=== PATIENT | female | born 1975 | race Caucasian/White ===

== ENCOUNTER 2016-07-01 08:45 | Emergency (ER) | payer MEDICAID ==
[~2016-07-01] VITALS: Ht 152.4 cm; Wt 74.5 kg
[~2016-07-01 08:45] MED LIST: PREN1TAB12
[2016-07-01 08:48] VITALS: Ht 152.4 cm; Wt 74.5 kg
[2016-07-01] MEDS ORDERED: DOCU-144 PO (10:09)
[2016-07-01] MEDS ORDERED: HYDR25SU23 PR (10:09)
--- NOTE | 2016-07-01 10:12 | ERD ---
ER Documentation Chief Complaint Date/Time DATE: 07/01/16 TIME: 10:10 Chief Complaint rectal growth x 2 days HPI 41-year-old female presents complaining of a growth factor that she has had for 2-3 days. She has pain with bowel movements. Denies any blood in her stool. Denies any nausea or vomiting or diarrhea. She has had hemorrhoids in the past. No fever. ROS All systems reviewed and are negative except as per history of present illness. Medications Home Meds Active Scripts Docusate Sodium* (Colace*) 100 Mg Capsule, 100 MG PO TID, #30 CAP Prov:KYUNG EARLY PA-C 07/01/16 Hydrocortisone Acetate (Anusol-Hc) 25 Mg Supp.rect, 1 SUPP LA BID Y for HEMORROID PAIN/ITCHING, #12 SUPP.RECT Prov:KYUNG EARLY PA-C 07/01/16 Reported Medications Vit/Fe Fumarate/Fa ( 1-1 Tablet) 1 Tab Tablet 01/28/09 Allergies Allergies: Coded Allergies: No Known Drug Allergies (Verified Allergy, Mild, 07/01/16) PMhx/Soc History of Surgery: Yes (C SECTION ) Hx Neurological Disorder: No Hx Respiratory Disorders: No Hx Cardiac Disorders: No Hx Miscellaneous Medical Probl: Yes (HEMORRHOIDS ) Hx Alcohol Use: No Hx Substance Use: No Hx Tobacco Use: No Smoking Status: Never smoker FmHx Family History: No diabetes Physical Exam Vitals Vital Signs Date Time Temp Pulse Resp B/P Pulse Ox O2 Delivery O2 Flow Rate FiO2 07/01/16 08:48 98.6 77 18 112/60 98 Physical Exam General: well developed, well nourished, alert, nontoxic, no distress Head: normocephalic, atraumatic Neck: Supple, nontender, no lymphadenopathy, no midline tenderness Respiratory: Clear to auscaultation bilaterally, speaks in full sentences, no use of accesory muscles or labored breathing, no rales, ronchi, or wheezing Cardiovascular: RRR, No murmurs GI: soft, non tender, non distended, negative murphys sign, negative mcburneys point tenderness, no cva tenderness bilaterally, no rebound or guarding Rectal: Performed with female parts fabricator site technician harmeet thompson Multiple external hemorrhoids nonthrombosed, no bleeding Procedures/MDM This is a 41-year-old who has nonthrombosed hemorrhoids. Her vitals are normal and her exam is otherwise normal. She is given a prescription for stool softeners as well as Anusol and instructed to follow primary care for possible outpatient referral to general surgery to have them removed if these do not resolve on their own. Recommended this patient follow up with her primary care doctor within 48 hours or return to the emergency room for any worsening of symptoms. However this time I do believe there is suitable for outpatient management. I answered all their questions and they agreed with the plan and were discharged home. Departure Diagnosis: Primary Impression: External hemorrhoid Condition: Stable Patient Instructions: Treating Hemorrhoids: Self-Care, Treating Hemorrhoids: Surgery, Hemorrhoids Additional Instructions: Call your primary care doctor TOMORROW for an appointment during the next 1-2 days.See the doctor sooner or return here if your condition worsens before your appointment time. KYUNG EARLY PA-C July 01, 2016 10:12
== END 2016-07-01 10:10 | disposition home or self-care (01) ==
LOC: FTE 08:45
DX: K64.4 Residual hemorrhoidal skin tags (principal)
CPT/HCPCS: 99284

== ENCOUNTER 2017-08-18 19:35 | Emergency (ER) | END 2017-08-18 22:30 | disposition home or self-care (01) ==

== ENCOUNTER 2018-01-22 13:57 | Emergency (ER) | END 2018-01-22 18:05 | disposition home or self-care (01) ==

== ENCOUNTER 2018-09-09 23:42 | Emergency (ER) | payer MEDICAID ==
[~2018-09-09] VITALS: Ht 152.4 cm; Wt 78.2 kg
[~2018-09-09 23:42] MED LIST changes: +ALBU8.5H8 INH; +AZIT250T PO; +BENZ-6 PO; +DOCU-144 PO; +HYDR25SU23 PR; +IBUP-1542 PO; +NITR-58 PO; +PRED20TA PO
[2018-09-09 23:49] VITALS: Ht 152.4 cm; Wt 78.2 kg
[2018-09-09] MEDS ORDERED: ALBUTEROL 0.083% (NEB) 2.5 MG/3 ML AMP HHN STA (23:58)
--- NOTE | 2018-09-09 23:58 | ERD ---
ER Documentation Chief Complaint Chief Complaint SOB X2 DAYS, HX ASTHMA HPI This is a 43-year-old female presents emergency department with complaints of shortness of breath and wheezing for about 2 days and got worse today. Stated that she has history of asthma. LMP: Stated that she is on her period. Denies headache, head injury, loss of consciousness, dizziness, neck pain, neck stiffness, throat pain, difficulty swallowing, difficulty breathing lying flat, shoulder pain, chest pain, back pain, abdominal pain, nausea, vomiting, constipation, diarrhea, urinary symptoms, or possibility being , loss of bowel and bladder control, trauma, injury, falls, difficulty walking due to pain, numbness or tingling sensation, calf pain, recent travel, recent major surgery in the last 3 weeks, calf pain, recent long travel, recent exposure to any illness, recent antibiotic use in the last 3 months, fever, chills, seizures. Past medical history: Denies. Surgical history: Denies. Social: Denies smoking, use of alcoholic beverages, use of illegal drugs. ROS All systems reviewed and are negative except as per history of present illness. Medications Home Meds Active Scripts Azithromycin* (Zithromax*) 250 Mg Tablet, 250 MG PO .ZPACK DIRECTED, #6 TAB TAKE 500 MG (2 TABS) THE FIRST DAY THEN 250 MG (1 TAB) DAYS 2-5 Prov:ALLISON ORDONEZ 09/10/18 Benzonatate* (Tessalon Perle*) 100 Mg Capsule, 100 MG PO Q8H PRN for COUGH, #15 CAP Prov:ALLISON ORDONEZ 09/10/18 Prednisone* (Prednisone*) 20 Mg Tab, 40 MG PO DAILY for 4 Days, TAB Prov:ALLISON ORDONEZ 09/10/18 Albuterol Sulfate* (Proair HFA*) 8.5 Gm Hfa.aer.ad, 2 PUFF INH Q4 PRN for WHEEZING, #1 INHALER Prov:ALLISON ORDONEZ 09/10/18 Nitrofurantoin Monohyd Macrocr* (Macrobid*) 100 Mg Capsr, 100 MG PO BID for 14 Days, CAP Prov:PEPPER PAPPAS PA-C 01/22/18 Albuterol Sulfate* (Proair HFA*) 8.5 Gm Hfa.aer.ad, 2 PUFF INH Q4, #1 INHALER Prov:MIANPEPPERVeda Shane PA-C 01/22/18 Ibuprofen* (Motrin*) 600 Mg Tab, 600 MG PO Q6, #30 TAB Prov:TIM WIN 08/18/17 Azithromycin* (Zithromax*) 250 Mg Tablet, 250 MG PO .ZPACK DIRECTED, #6 TAB TAKE 500 MG (2 TABS) THE FIRST DAY THEN 250 MG (1 TAB) DAYS 2-5 Prov:TIM WIN 08/18/17 Docusate Sodium* (Colace*) 100 Mg Capsule, 100 MG PO TID, #30 CAP Prov:KYUNG EARLY PA-C 07/01/16 Hydrocortisone Acetate (Anusol-Hc) 25 Mg Supp.rect, 1 SUPP MS BID PRN for HEMORROID PAIN/ITCHING, #12 SUPP.RECT Prov:KYUNG EARLY PA-C 07/01/16 Reported Medications Vit/Fe Fumarate/Fa ( 1-1 Tablet) 1 Tab Tablet 01/28/09 Allergies Allergies: Coded Allergies: No Known Drug Allergies (Verified Allergy, Mild, 07/01/16) PMhx/Soc History of Surgery: Yes ( x 4) Hx Neurological Disorder: No Hx Respiratory Disorders: Yes (asthma) Hx Cardiac Disorders: No Hx Miscellaneous Medical Probl: Yes (HEMORRHOIDS ) Hx Alcohol Use: No Hx Substance Use: No Hx Tobacco Use: No Physical Exam Vitals Vital Signs Date Temp Pulse Resp B/P (MAP) Pulse Ox O2 O2 Flow FiO2 Time Delivery Rate 09/10/18 98.2 86 17 122/80 99 Room Air 01:34 (94) 09/10/18 98 20 98 21 00:26 09/09/18 98.6 82 20 125/60 98 23:49 (81) Physical Exam Head: Atraumatic Eyes: Normal Conjunctiva ENT: Normal External Ears, Nose and Mouth. Bilateral ears: TMs are not erythematous. No bleeding. No discharge. No hearing loss. No mastoid tenderness. Nose: There is no frontal or maxillary sinus tenderness palpation. Throat: Uvula is in midline and nondisplaced. Tonsils are +1 bilaterally without redness and without exudates. Tolerating secretions. Patent airway. Speaks full and clear sentences. No tripoding. Neck: Full range of motion. No meningismus. No nuchal rigidity. No signs of meningeal irritation. Resp: Wheezing bilaterally. No accessory muscle use in breathing. Cardio: Regular rate and rhythm, no murmurs Abd: Soft, non tender, non distended. Normal bowel sounds. Negative Moreau sign. Skin: No petechiae or rashes. Color appears normal for ethnicity. No skin tenting. No signs of severe dehydration. Back: No midline or flank tenderness Ext: No cyanosis, or edema Neur: Awake and alert. No neurological deficits. Psych: Normal Mood and Affect Results 24 hrs Current Medications Medications Dose Sig/Rojas Start Time Status Last (Trade) Ordered Route PRN Stop Time Admin Dose Reason Admin 10 mg ONCE ONCE 09/10/18 DC 09/10/18 Dexamethasone IM 00:00 00:31 (Decadron) 09/10/18 00:01 Albuterol 5 mg ONCE STAT 09/09/18 DC 09/10/18 (Proventil HHN 23:58 00:26 0.083% (Neb)) 09/09/18 23:59 Ipratropium 0.5 mg ONCE ONCE 09/10/18 DC 09/10/18 [place] [facility] 00:00 00:26 (Atrovent 09/10/18 00:01 0.02% (Neb)) Procedures/MDM Diagnostic tests: Clinical exam. Treatment: Dexamethasone IM. Albuterol and Atrovent breathing treatment. Re-evaluation: Respirations even and unlabored. No accessory muscle use in breathing. Lung sounds are clear to auscultation. No drooling. No tripoding. Stated that she feels much better at this time and that she is ready to go home. Stated that she is comfortable to go home. Differential diagnosis I have low suspicion for airway obstruction, angioedema, anaphylactic shock, pneumonia, aspiration pneumonia, bronchospasms, severe dehydration. Final diagnosis: Asthma exacerbation with bronchitis. Asthmatic bronchitis. Patient is insisting antibiotic. Prescription: Azithromycin. Prednisone. Pro-air. Tessalon Perles. Follow-up with PCP in the next 24-48 hours. Come back here in the emergency department for any new symptoms or any worsening symptoms. All questions and concerns were answered. Patient and family members verbalized understanding and agreed with plan of care. Hemodynamically stable on discharge. Departure Diagnosis: Primary Impression: Asthmatic bronchitis Additional Impression: Asthma exacerbation Condition: Stable Additional Instructions: Follow-up with PCP in the next 24-48 hours. Come back here in the emergency department for any new symptoms or any worsening symptoms. ALLISON ORDONEZ Sep 09, 2018 23:58
[2018-09-10] MEDS ORDERED: IPRATROPIUM (NEB) 0.5 MG/2.5 ML AMP HHN ONE
[2018-09-10] MEDS ORDERED: DEXAMETHASONE 10 MG/ML 1 ML INJ IM ONE
[2018-09-10 01:34] VITALS: BP 122/80; PULSE 86; RESP 17
== END 2018-09-10 01:38 | disposition home or self-care (01) ==
LOC: FTE 23:42
DX: J45.901 Unspecified asthma with (acute) exacerbation (principal)
CPT/HCPCS: 94664; 96372; J1100; Z7502; Z7610